=== PATIENT | male | born 1945 | race Caucasian/White ===

== ENCOUNTER 2018-04-03 06:15 | Day surgery (SDC) | payer MEDICARE ==
[2018-04-03] VITALS (12 sets, daily range): BP systolic 89–129; BP diastolic 50–75
[~2018-04-03] VITALS: Ht 180.3 cm; Wt 87.9 kg
[2018-04-03] MEDS ORDERED: normal saline 1000ml 1,000 ML IV SCH (06:55)
[2018-04-03] MEDS ORDERED: LIDOcaine 1% (10mg/ml) 2ml vial ONE (07:15)
[2018-04-03 07:41] LABS: BASOPHILS % (AUTO) 0.4 % (0-1); EOSINOPHILS # (AUTO) 0.1 X10'3 (0-0.9); EOSINOPHILS % (AUTO) 3.1 % (0-6); HEMATOCRIT 51.9 % (42.0-52.0); HEMOGLOBIN 17.4 g/dl (14.0-17.9); LYMPHOCYTES # (AUTO) 0.9 X10'3 (1.1-4.8); LYMPHOCYTES % (AUTO) 18.1 % (21-51); MEAN CORPUSCULAR HEMOGLOBIN 28.4 PG (27.0-31.0); MEAN CORPUSCULAR HGB CONC 33.6 % (33.0-36.5); MEAN CORPUSCULAR VOLUME 84.8 FL (78-98); MEAN PLATELET VOLUME 7.2 FL (7.4-10.4); MONOCYTES # (AUTO) 0.4 X10'3 (0-0.9); MONOCYTES % (AUTO) 8.9 % (2-12); NEUTROPHILS # (AUTO) 3.3 X10'3 (1.8-7.7); NEUTROPHILS % (AUTO) 69.5 % (42-75); PLATELET COUNT 282 X10'3 (140-440); RED BLOOD COUNT 6.12 X10'6 (4.70-6.10); WHITE BLOOD COUNT 4.8 X10'3 (4.5-11.0)
[2018-04-03 07:54] LABS: ALBUMIN 4.3 G/DL (3.4-5.0); ANION GAP 10 (8-16); BLOOD UREA NITROGEN 15 MG/DL (7-18); BUN/CREATININE RATIO 13.4 (5.4-32.0); CALCIUM 9.8 MG/DL (8.5-10.1); CHLORIDE 102 MMOL/L (99-107); CREATININE 1.12 MG/DL (0.60-1.10); GLUCOSE 130 MG/DL (70-104); POTASSIUM 4.1 MMOL/L (3.5-5.1); SODIUM 139 MMOL/L (135-145); TOTAL CARBON DIOXIDE 26.7 MMOL/L (24-32); eGFR 64 ML/MIN
[2018-04-03] MEDS ORDERED: FEXO180T94 PO (08:10)
[2018-04-03] MEDS ORDERED: SIMV40TA4 PO (08:10)
[2018-04-03] MEDS ORDERED: SPIR25TA5 PO (08:10)
[2018-04-03] MEDS ORDERED: FURO-149 PO (08:10)
[2018-04-03] MEDS ORDERED: METF500T7 PO (08:10)
[2018-04-03] MEDS ORDERED: SACU1TAB PO (08:10)
[2018-04-03] MEDS ORDERED: ASPI81TA30 PO (08:10)
[2018-04-03] MEDS ORDERED: CLOP75TA15 PO (08:10)
[2018-04-03] MEDS ORDERED: MULT1TAB74 PO (08:10)
[2018-04-03] MEDS ORDERED: CHOL50004 PO (08:10)
[2018-04-03] MEDS ORDERED: CARV-49 PO (08:10)
[2018-04-03] MEDS ORDERED: METF-438 PO (08:10)
[2018-04-03] MEDS ORDERED: TEMA15CA PO (08:10)
[2018-04-03] MEDS ORDERED: CA C1TAB95 PO (08:10)
[2018-04-03] MEDS ORDERED: POTA10TA19 PO (08:10)
[2018-04-03] MEDS ORDERED: UBID30CA11 PO (08:10)
[2018-04-03 08:20] LABS: PROTHROMBIN TIME 10.3 SECONDS (9.0-12.0)
[2018-04-03 08:21] LABS: PARTIAL THROMBOPLASTIN TIME 29 SECONDS (22-32)
[2018-04-03] MEDS ORDERED: fentaNYL/PF 50MCG/1 ML 2ML syringe ONE (08:56)
[2018-04-03] MEDS ORDERED: ceFAZolin 1000mg inj ONE (08:56)
[2018-04-03] MEDS ORDERED: midazolam 2 mg/2 ml injection ONE ×2 (08:56→10:11)
[2018-04-03] MEDS ORDERED: lidocaine 1%/epinephrine 1:100,000 injection 50ml vial ONE (08:56)
[2018-04-03] MEDS ORDERED: ceFAZolin 1GM/D5W- ADD-VANTAGE 50 ML IV ONE (08:56)
[2018-04-03] MEDS ORDERED: iohexol 350 MG/ML 50ML vial IV ONE (09:55)
[2018-04-03] MEDS ORDERED: HYDROcodone/acetaminophen 10/325mg tab PO PRN (12:15)
[2018-04-03] MEDS: HYDROcodone/acetaminophen 5mg/325mg tablet PO PRN ×2 (13:58→15:47)
[2018-04-03] MEDS ORDERED: ceFAZolin 1GM/D5W- ADD-VANTAGE 50 ML IV SCH (16:00)
== END 2018-04-03 17:10 | disposition home or self-care (01) ==
LOC: SSTAY O 06:15
PROVIDERS: ATTEND Internal Medicine Cardiovascular Disease
DX: I50.22 Chronic systolic (congestive) heart failure (principal); I42.0 Dilated cardiomyopathy; I44.7 Left bundle-branch block, unspecified; R00.1 Bradycardia, unspecified; R06.00 Dyspnea, unspecified; R53.83 Other fatigue; I11.0 Hypertensive heart disease with heart failure; I25.10 Atherosclerotic heart disease of native coronary artery without angina pectoris; E78.5 Hyperlipidemia, unspecified; E11.9 Type 2 diabetes mellitus without complications; N40.0 Benign prostatic hyperplasia without lower urinary tract symptoms; R06.02 Shortness of breath; Z88.6 Allergy status to analgesic agent; Z79.82 Long term (current) use of aspirin; Z87.891 Personal history of nicotine dependence; Z98.41 Cataract extraction status, right eye; Z98.42 Cataract extraction status, left eye; Z72.89 Other problems related to lifestyle; Z95.5 Presence of coronary angioplasty implant and graft; Z79.01 Long term (current) use of anticoagulants; Z79.84 Long term (current) use of oral hypoglycemic drugs; Z79.899 Other long term (current) drug therapy; Z82.49 Family history of ischemic heart disease and other diseases of the circulatory system; Z80.9 Family history of malignant neoplasm, unspecified
CPT/HCPCS: 33249; 36415; 71046; 80048; 82948; 85025; 85610; 85730; 93005; 99152; 99153; A6449; C1721; C1895; J0690; J2250; J3010; J3490; Q9967; A4565; A4620; C1894; J7030

== ENCOUNTER 2019-06-13 13:39 | Outpatient (CLI) | payer MEDICARE ==
[~2019-06-13 13:39] MED LIST: ASPI81TA30 PO; CA C1TAB95 PO; CARV-49 PO; CHOL50004 PO; CLOP75TA15 PO; FEXO180T94 PO; FURO-149 PO; METF-438 PO; METF500T20 PO; MULT1TAB74 PO; POTA10TA19 PO; SACU1TAB PO; SIMV-45 PO; SPIR25TA5 PO; TEMA15CA PO; UBID30CA11 PO
== END 2019-06-13 23:59 | disposition home or self-care (01) ==
LOC: CARD DIAG 13:39
PROVIDERS: ATTEND Internal Medicine Cardiovascular Disease
DX: I08.8 Other rheumatic multiple valve diseases (principal)
CPT/HCPCS: 93306